=== PATIENT | female | born 1980 | race Caucasian/White ===

== ENCOUNTER 2017-09-13 15:56 | Emergency (ER) | END 2017-09-13 16:33 | disposition home or self-care (01) ==

== ENCOUNTER 2017-09-14 14:23 | Emergency (ER) | payer OTHER ==
[2017-09-14 14:31] VITALS: BP 165/99
--- NOTE | 2017-09-14 15:13 | ED Physician Documentation ---
PD HPI SKIN - Stated complaint Stated Complaint: WOUND RECHECK - Chief complaint Chief Complaint: Wound - History obtained from History obtained from: Patient - History of Present Illness Timing - onset: Yesterday (She returns As requested for A scheduled wound check for breast/sternal abscess that was needle drained yesterday. She feels like it did reaccumulate overnight but she denies any systemic symptoms or fevers. Preliminary culture is growing staph aureus, sensitivities not yet available.) Review of Systems Constitutional: denies: Fever, Chills Cardiac: denies: Chest pain / pressure, Palpitations Respiratory: denies: Dyspnea, Cough PD PAST MEDICAL HISTORY - Past Medical History Past Medical History: Yes Cardiovascular: None Neuro: None Endocrine/Autoimmune: None GI: None Derm: Other - Past Surgical History Past Surgical History: No - Present Medications Home Medications: Ambulatory Orders Medication Instructions Recorded Confirmed Clindamycin [Cleocin] 300 mg PO Q6H 10 Days capsule 09/13/17 HYDROcod/ACETAM 5/325 [[place] 5/325] 1 - 2 ea PO Q6H PRN #15 tablet 09/13/17 - Allergies Allergies/Adverse Reactions: Allergies Allergy/AdvReac Type Severity Reaction Status Date / Time codeine Allergy Hallucinati Verified 09/14/17 14:32 ons Penicillins Allergy Nausea Verified 09/14/17 14:32 Sulfa (Sulfonamide Allergy Hives Verified 09/14/17 14:32 Antibiotics) - Social History Does the pt smoke?: Yes Smoking Status: Current every day smoker Does the pt drink ETOH?: Yes Does the pt have substance abuse?: No - Immunizations Immunizations are current?: Yes - POLST Patient has POLST: No PD ED PE NORMAL - Vitals Vital signs reviewed: Yes - General General: Alert and oriented X 3, No acute distress - Neck Neck: Supple, no meningeal sign, No bony TTP - Derm Derm: Other (done with [employer], It has reaccumulated a little bit on the chest wall with mild overlying cellulitis, not as big as yesterday though.) - Neuro Neuro: Alert and oriented X 3, Normal speech Results - Vitals Vitals: Vital Signs - 24 hr 09/14/17 14:30 Temperature 36.9 C Heart Rate 94 Respiratory 18 Rate Blood Pressure 165/99 H O2 Saturation 98 Oxygen O2 Source Room air Procedures - Abscess I&D (location) Chest wall Preparation: Betadine, Lidocaine 1% Incision: Incised with scalpel, Purulent drainage, Loculations broken, Packed ( with 1/4 inch). No: Culture obtained (done yesterday) Other: Pt tolerated well, Dressing applied PD MEDICAL DECISION MAKING - Sepsis Event Vital Signs: Vital Signs - 24 hr 09/14/17 14:30 Temperature 36.9 C Heart Rate 94 Respiratory 18 Rate Blood Pressure 165/99 H O2 Saturation 98 Oxygen O2 Source Room air Departure - Departure Disposition: Home, Self Care Clinical Impression: Chest wall abscess Condition: Good Record reviewed to determine appropriate education?: Yes Instructions: ED Abscess IandD Comments: Return Friday for wound check and packing removal and culture review.
[2017-09-14] MEDS ORDERED: BUFFERED LIDOCAINE 10 ML SYRINGE ONE (15:24)
== END 2017-09-14 15:24 | disposition home or self-care (01) ==
LOC: ED 14:23
DX: L02.213 Cutaneous abscess of chest wall (principal); F17.200 Nicotine dependence, unspecified, uncomplicated
CPT/HCPCS: 10060; 99281; 99282

== ENCOUNTER 2017-09-16 19:41 | Emergency (ER) | payer OTHER ==
--- NOTE | 2017-09-16 20:34 | ED Physician Documentation ---
PD HPI WOUND RECHECK - Stated complaint Stated Complaint: WOUND CHECK - Chief complaint Chief Complaint: Wound - Histroy obtained from History obtained from: Patient - History of Present Illness Location: Chest Timing - onset: How many days ago (3 days ago with needle aspiration and then 2 days ago with I&D. Has wicking in and says it is draining still. Hurting a lot.) Associated symptoms: Redness (decreased redness around the abscess, per patient. ). No: Fever Similar symptoms before: Has not had sx before Recently seen: Emergency Dept (seen 3 days ago with aspiration and abx, then 2 days ago with I&D added.) Review of Systems Constitutional: reports: Chills, Myalgias. denies: Fever Nose: denies: Rhinorrhea / runny nose, Congestion Throat: denies: Sore throat Cardiac: reports: Chest pain / pressure (at infection site, not deeper.) Respiratory: denies: Cough GI: reports: Nausea. denies: Abdominal Pain, Vomiting, Diarrhea : denies: Dysuria, Frequency Skin: reports: Rash PD PAST MEDICAL HISTORY - Past Medical History Cardiovascular: None Neuro: None Endocrine/Autoimmune: None GI: None Derm: Other - Past Surgical History Past Surgical History: No - Present Medications Home Medications: Ambulatory Orders Medication Instructions Recorded Confirmed Clindamycin [Cleocin] 300 mg PO Q6H 10 Days capsule 09/13/17 HYDROcod/ACETAM 5/325 [[place] 5/325] 1 - 2 ea PO Q6H PRN #15 tablet 09/13/17 Doxycycline Monohydrate 100 mg PO BID #14 tablet 09/16/17 HYDROcod/ACETAM 5/325 [[place] 5/325] 1 tab PO Q6H PRN #15 tablet 09/16/17 Ondansetron HCl [Zofran] 4 mg PO Q6H PRN #20 tablet 09/16/17 - Allergies Allergies/Adverse Reactions: Allergies Allergy/AdvReac Type Severity Reaction Status Date / Time codeine Allergy Hallucinati Verified 09/16/17 19:48 ons Penicillins Allergy Nausea Verified 09/16/17 19:48 Sulfa (Sulfonamide Allergy Hives Verified 09/16/17 19:48 Antibiotics) - Social History Does the pt smoke?: Yes Smoking Status: Current every day smoker Does the pt drink ETOH?: Yes Does the pt have substance abuse?: No - Immunizations Immunizations are current?: Yes - POLST Patient has POLST: No PD ED PE NORMAL - Vitals Vital signs reviewed: Yes - General General: Alert and oriented X 3, Well developed/nourished - Neck Neck: Supple, no meningeal sign, No adenopathy - Cardiac Cardiac: RRR, No murmur - Respiratory Respiratory: Clear bilaterally - Abdomen Abdomen: Soft, Non tender - Derm Derm: Normal color, Warm and dry, Other (mid sternal area with incision site with wicking present. Some purulence of it. Minimal surrounding redness but is tender. Packing removed and appears minimal to no purulence in cavity. Cleansed out. ) Results - Vitals Vitals: Vital Signs - 24 hr 09/16/17 09/16/17 19:44 21:40 Temperature 36.7 C 37.3 C Heart Rate 109 H 75 Respiratory 19 18 Rate Blood Pressure 179/108 H 138/102 H O2 Saturation 97 98 Oxygen O2 Source Room air PD MEDICAL DECISION MAKING - ED course Complexity details: reviewed results (culture results MSSA.), considered differential (removed packing and the hole is patent enough to drain without wicking. This will help the pain some. Culture showing MSSA and since not improved with Clinda, can change it to Doxy (sulfa allergy). ), d/w patient - Sepsis Event Vital Signs: Vital Signs - 24 hr 09/16/17 09/16/17 19:44 21:40 Temperature 36.7 C 37.3 C Heart Rate 109 H 75 Respiratory 19 18 Rate Blood Pressure 179/108 H 138/102 H O2 Saturation 97 98 Oxygen O2 Source Room air Departure - Departure Disposition: 01 Home, Self Care Clinical Impression: Chest wall abscess, Abscess re-check Record reviewed to determine appropriate education?: Yes Prescriptions: Doxycycline Monohydrate 100 mg PO BID #14 tablet HYDROcod/ACETAM 5/325 [[place] 5/325] 1 tab PO Q6H PRN #15 tablet PRN Reason: Pain Ondansetron HCl [Zofran] 4 mg PO Q6H PRN #20 tablet PRN Reason: Nausea / Vomiting Comments: Discontinue the clindamycin. It does not seem to be effective and might be contributing to the nausea. Use ondansetron if needed for nausea. Change to doxycycline twice daily for a week. Warm towels to the abscess area periodically. Tylenol or hydrocodone if needed for pain. Recheck if still not improving well over the next 2-3 days. Forms: Activity restrictions Discharge Date/Time: 09/16/17 21:56
[2017-09-16] MEDS: DOXYCYCLINE 100 MG TABLET PO STA (21:12)
[2017-09-16] MEDS: KETOROLAC 30 MG/ML VIAL IM STA (21:12)
[2017-09-16] MEDS: ONDANSETRON ODT 4 MG TABLET TL STA (21:12)
[2017-09-16] MEDS: MORPHINE 10 MG/ML VIAL IM STA (21:13)
[2017-09-16 21:41] VITALS: BP 138/102
== END 2017-09-16 21:56 | disposition home or self-care (01) ==
LOC: ED 19:41
DX: L02.213 Cutaneous abscess of chest wall (principal); F17.200 Nicotine dependence, unspecified, uncomplicated
CPT/HCPCS: 96372; 99283; A9270; Q0162